=== PATIENT | female | born 2000 | race Caucasian/White ===

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

== ENCOUNTER 2022-08-17 13:48 | Emergency (ER) | payer MEDICAID ==
[2022-08-17] MEDS ORDERED: predniSONE 20 MG Tab PO STA (13:58)
[2022-08-17] MEDS ORDERED: Albuterol/Ipratropium 3.0-0.5 MG/3 ML Neb Soln NEB ONE (13:58)
[2022-08-17 14:23] VITALS: BP 126/84; PULSE 102
== END 2022-08-17 14:40 | disposition home or self-care (01) ==
LOC: CC.ED 13:48
DX: J45.901 Unspecified asthma with (acute) exacerbation (principal); F17.210 Nicotine dependence, cigarettes, uncomplicated; Z91.040 Latex allergy status; Z79.899 Other long term (current) drug therapy
CPT/HCPCS: 94640; 99283; 99284; J7512; J7620-GY